=== PATIENT | female | born 1950 | race Caucasian/White ===

== ENCOUNTER → 2018-03-21 09:24 | Outpatient (CLI) | payer OTHER, MEDICARE, SELFPAY ==
--- NOTE | 2018-03-21 09:35 | US_ITS ---
STUDY: RENAL ULTRASOUND - COMPLETE REASON FOR EXAM: Female, 67 years old. Frequent UTIs. TECHNIQUE: Ultrasound evaluation of the kidneys was performed with real-time and static hutson-scale imaging. COMPARISON: None. FINDINGS: RIGHT KIDNEY: Normal location of the right kidney, which is normal in size. The right kidney measures 9.6 cm x 4.3 cm x 4.2 cm. There is a normal cortex of the right kidney. The renal cortex measures 1.4 cm. There is no right renal mass or cyst. There are no right renal calculi. There is no right hydronephrosis. DISTAL RIGHT URETER: There is non-visualization of the distal right ureter. There is no demonstrated right ureterovesical junction calculus. There is a visualized right ureteral jet. LEFT KIDNEY: Normal location of the left kidney, which is normal in size. The left kidney measures 10.2 cm x 4.2 cm x 5.3 cm. There is a normal cortex of the left kidney. The renal cortex measures 1.3 cm. There is no left renal mass or cyst. There are no left renal calculi. There is no left hydronephrosis. DISTAL LEFT URETER: There is non-visualization of the distal left ureter. There is no demonstrated left ureterovesical junction calculus. There is a visualized left ureteral jet. BLADDER: The distended urinary bladder has a volume of 156 ml. The empty urinary bladder has a volume of 10 ml. There is a normal wall thickness of the distended urinary bladder. There is no demonstrated mass within the urinary bladder. There are no demonstrated bladder calculi. US/Kidney and Bladder IMPRESSION: Normal ultrasound of the kidneys and urinary bladder. Electronically Signed: Sd Fernandez MD at 14:25 EST Tel [phone], Service support ,
== END ==
PROVIDERS: Family Provider Family Medicine; PCP Family Medicine; Referring Provider Urology; Visit Provider Urology
DX: N39.0 Urinary tract infection, site not specified (principal)
CPT/HCPCS: 76770

== ENCOUNTER → 2025-03-23 | Outpatient (CLI) | payer BC, SELFPAY ==
--- NOTE | 2025-03-23 14:55 | RAD_ITS ---
PROCEDURE: THORACIC SPINE 3 VIEWS 03/23/2025 REASON FOR EXAM: Degenerative joint disease TECHNIQUE: Procedure Code: RADSPT Modality: DX Procedure: THORACIC SPINE 3 VIEWS COMPARISON: None available. FINDINGS: Vertebrae: The vertebral body heights are maintained. L3 compression fracture and likely kyphoplasty. Discs: The intervertebral disc spaces are maintained. Alignment: No significant spondylolisthesis. Other: The visualized lungs are unremarkable. RAD/Thoracic Spine 3 Views IMPRESSION: No significant spondylolisthesis or compression fracture deformity in the thora cic spine. Reading Location: [id number]
== END | disposition home or self-care (01) ==
LOC: RAD 14:51
PROVIDERS: PCP Family Medicine; Referring Provider Anesthesiology Pain Medicine; Visit Provider Anesthesiology Pain Medicine
DX: M51.34 Other intervertebral disc degeneration, thoracic region (principal)
CPT/HCPCS: 72072

== ENCOUNTER → 2025-04-08 | Outpatient (CLI) | payer BC, SELFPAY ==
--- NOTE | 2025-04-08 08:37 | MRI_ITS ---
PROCEDURE: SPINE THORACIC (ROUTINE) 04/08/2025 REASON FOR EXAM: RADICULOPATHY OF THORACIC REGION TECHNIQUE: Procedure Code: MRISPT Modality: MR Procedure: SPINE THORACIC (ROUTINE) Multiplanar and multisequence images were obtained. CONTRAST: None COMPARISON: Conventional radiographs FINDINGS: T1-T2: Vertebral bodies: Negative. Disk Space: Disc desiccation. Mild Schmorl's node superior endplate T2. Negative for Modic changes. Facet Joints: Negative for bilateral facet joint hypertrophy. Neural foramina: Negative for neural foraminal narrowing Spinal Canal: Negative forcentral spinal narrowing. T2-T3: Vertebral bodies: Negative. Disk Space: Negative. Negative for Modic changes. Facet Joints: Negative for bilateral facet joint hypertrophy. Neural foramina: Negative for neural foraminal narrowing Spinal Canal: Negative forcentral spinal narrowing. T3-T4: Vertebral bodies: Negative. Disk Space: Negative. Negative for Modic changes. Facet Joints: Negative for bilateral facet joint hypertrophy. Neural foramina: Negative for neural foraminal narrowing Spinal Canal: Negative forcentral spinal narrowing. T4-T5: Vertebral bodies: Negative. Disk Space: Negative. Negative for Modic changes. Facet Joints: Negative for bilateral facet joint hypertrophy. Neural foramina: Negative for neural foraminal narrowing Spinal Canal: Negative forcentral spinal narrowing. T5-T6: Vertebral bodies: Negative. Disk Space: Negative. Negative for Modic changes. Facet Joints: Slight bilateral facet joint hypertrophy. Neural foramina: Negative for neural foraminal narrowing Spinal Canal: Negative forcentral spinal narrowing. T6-T7: Vertebral bodies: Negative. Disk Space: Negative. Negative for Modic changes. Facet Joints: Mild bilateral facet joint hypertrophy. Neural foramina: Negative for neural foraminal narrowing Spinal Canal: Negative forcentral spinal narrowing. T7-T8: Vertebral bodies: Negative. Disk Space: Negative. Negative for Modic changes. Facet Joints: Mild bilateral facet joint hypertrophy. Neural foramina: Negative for neural foraminal narrowing Spinal Canal: Negative forcentral spinal narrowing. T8-T9: Vertebral bodies: Negative. Disk Space: Negative. Negative for Modic changes. Facet Joints: Mild bilateral facet joint hypertrophy. Neural foramina: Negative for neural foraminal narrowing Spinal Canal: Negative forcentral spinal narrowing. T9-T10: Vertebral bodies: Negative. Disk Space: Negative. Negative for Modic changes. Facet Joints: Mild bilateral facet joint hypertrophy. Neural foramina: Negative for neural foraminal narrowing Spinal Canal: Negative forcentral spinal narrowing. T10-T11: Vertebral bodies: Negative. Disk Space: Negative. Negative for Modic changes. Facet Joints: Mild bilateral facet joint hypertrophy. Neural foramina: Negative for neural foraminal narrowing Spinal Canal: Negative forcentral spinal narrowing. T11-T12: Vertebral bodies: Negative. Disk Space: Negative. Negative for Modic changes. Facet Joints: Mild bilateral facet joint hypertrophy. Neural foramina: Negative for neural foraminal narrowing Spinal Canal: Negative forcentral spinal narrowing. Spinal cord: Spinal cord negative. Adjacent structures otherwise negative. MRI/Spine Thoracic (Routine) IMPRESSION: Early degenerative changes of thoracic spine but no acute compression fractures or neural foraminal narrowing. Reading Location: [id number]
== END | disposition home or self-care (01) ==
LOC: MRI 08:31
PROVIDERS: PCP Family Medicine; Referring Provider Anesthesiology Pain Medicine; Visit Provider Anesthesiology Pain Medicine
DX: M54.14 Radiculopathy, thoracic region (principal)
CPT/HCPCS: 72146